=== PATIENT | female | born 1970 | race Caucasian/White ===

== ENCOUNTER → 2018-10-08 | Outpatient (CLI) | payer MEDICARE, OTHER ==
[~2018-10-08] MED LIST: ACET325T53 PO; ALBU2.5V11 NEB; AMIN30LI PO; ARIP5TAB10 PO; ASCO500C16 PO; BENZ1LOZ2 PO; DEXT1DRO6 OP; DOCU-270 PO; HYDR2TAB4 PO; LANS15TA6 PO; LORA-258 PO; MORP60TA34 PO; MULT1TAB11 PO; ONDA4SOL2 PO; OXYC30TA2 PO; POLY119P PO; SENN1TAB6 PO; TEMA15CA5 PO; ZINC220C6 PO
== END ==
LOC: MSC 16:30
PROVIDERS: ATTEND Anesthesiology
DX: M46.96 Unspecified inflammatory spondylopathy, lumbar region (principal); M96.1 Postlaminectomy syndrome, not elsewhere classified; M54.16 Radiculopathy, lumbar region; M50.10 Cervical disc disorder with radiculopathy, unspecified cervical region; M62.830 Muscle spasm of back; M25.9 Joint disorder, unspecified; G89.4 Chronic pain syndrome; Z79.899 Other long term (current) drug therapy

== ENCOUNTER 2018-11-12 10:49 | Outpatient (CLI) | payer MEDICARE, OTHER | END 2018-11-12 23:59 | disposition home or self-care (01) | LOC: MSC 10:49 | PROVIDERS: ATTEND Anesthesiology | DX: M46.96 Unspecified inflammatory spondylopathy, lumbar region (principal); M96.1 Postlaminectomy syndrome, not elsewhere classified; M62.830 Muscle spasm of back; M50.10 Cervical disc disorder with radiculopathy, unspecified cervical region; G89.4 Chronic pain syndrome; M79.2 Neuralgia and neuritis, unspecified; M25.9 Joint disorder, unspecified; Z79.899 Other long term (current) drug therapy ==

== ENCOUNTER 2018-12-19 12:18 | Emergency (ER) | payer MEDICARE, OTHER ==
[~2018-12-19] VITALS: Ht 175.3 cm; Wt 98.9 kg
--- NOTE | 2018-12-19 12:29 | NUR ---
Surekha burnett in EDM - 12/19/18 at 1415 by SONU FROM URGENT CARE; INCREASED SWELLING AND PAIN IN VAGINAL AREA, PT STARTED ATB YESTERDAY. TO ER BED 16, HOOKED TO MONITOR, CHANGED TO [facility], AWAITING MD TEMPLETON.
--- NOTE | 2018-12-19 12:56 | NUR ---
DR HOYT AT BEDSIDE FOR EVAL.
[2018-12-19 13:22] LABS: BASOPHILS % (AUTO) 0.4 % (0.0-2.0); EOSINOPHILS % (AUTO) 1.2 % (0.0-6.0); HEMATOCRIT 44 % (33-45); HEMOGLOBIN 14.3 g/dL (11.5-14.8); LYMPHOCYTES # (AUTO) 1.3 /CMM (0.8-4.8); LYMPHOCYTES % (AUTO) 23.8 % (20.0-44.0); MEAN CORPUSCULAR HGB CONC 33 g/dl (31.0-36.0); MEAN CORPUSCULAR VOLUME 78 fL (82-100); MONOCYTES # (AUTO) 0.4 /CMM (0.1-1.30); MONOCYTES % (AUTO) 7.7 % (2.0-12.0); NEUTROPHILS # (AUTO) 3.7 /CMM (1.8-8.9); NEUTROPHILS % (AUTO) 66.9 % (43.0-81.0); PLATELET COUNT (AUTO) 188 /CMM (150-450); RED BLOOD CELL COUNT(AUTO) 5.62 MIL/uL (4.0-5.2); WHITE BLOOD COUNT (AUTO) 5.5 K/uL (4.3-11.0)
[2018-12-19 13:35] LABS: ALANINE AMINOTRANSFERASE 19 U/L (12-78); ALBUMIN 3.4 g/dL (3.4-5.0); ALCOHOL, BLOOD < 3 mg/dL (0-0); ALKALINE PHOSPHATASE 87 U/L (46-116); ASPARTATE AMINOTRANSFERASE 17 U/L (15-37); BILIRUBIN,DIRECT 0.1 mg/dL (0.0-0.2); BILIRUBIN,TOTAL 0.2 mg/dL (0.2-1.0); CALCIUM, SERUM 9.3 mg/dL (8.5-10.1); CARBON DIOXIDE 30 mmol/L (21-32); CHLORIDE 102 mmol/L (98-107); CREATININE 0.8 mg/dL (0.6-1.3); GLUCOSE 117 mg/dL (74-106); POTASSIUM 4.1 mmol/L (3.5-5.1); SALICYLATE 3.9 mg/dL (2.8-20.0); SODIUM SERUM 136 mmol/L (136-145); TOTAL PROTEIN, SERUM 7.5 g/dL (6.4-8.2); UREA NITROGEN, BLOOD 14 mg/dL (7-18)
[2018-12-19 13:45] LABS: ACETAMINOPHEN 0 ug/ml (10-30)
[2018-12-19 13:56] LABS: APPEARANCE,URINE Clear (CLEAR); BILIRUBIN,URINE Negative (NEGATIVE); BLOOD, URINE Negative Ery/uL (NEGATIVE); COLOR,URINE Yellow (YELLOW); KETONES,URINE Negative (NEGATIVE); LEUKOCYTE ESTERASE ,URINE Negative (NEGATIVE); NITRITE, URINE Negative (NEGATIVE); PH,URINE 5.5 (5.0-8.0); PROTEIN,URINE Negative (NEGATIVE); UGLUCOSE Negative (NEGATIVE); UROBILINOGEN,URINE 0.2 EU/dL (0.2)
--- NOTE | 2018-12-19 14:27 | NUR ---
Social service consult requested by Dr. Koenig due to pt. using drugs at her SNF. Pt. is a 48 year old female who was sent to [facility] from her SNF [facility] to be medically cleared due to pt. has used drugs 3 days ago. HARSHA met with the pt. Pt. is alert and oriented x 4. Pt. is well-groomed. Pt is hyperverbal. 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 Pt. states she was sober for 12 months prior to this incident and regrets using drugs. Pt. denies alcohol use. Pt. smoke cigarettes and marijuana daily. HARSHA spoke with Dr. Koenig prior to seeing the pt. and stated pt. is medically cleared and does not need hospitalization. Pt has as psychiatric diagnosis of Bipolar with Hypomania. Pt. is taking psychotropic medications. Pt. denies any suicidal and homicidal ideations and visual/auditory hallucinations at this time. Pt. is wanting to go back to her [facility]. HARSHA updated FIDELIA Hui with aforementioned information and requested him to call [facility] to inquire if they are accepting the pt. back. No other social service needs are requested at this time.
--- NOTE | 2018-12-19 14:49 | NUR ---
CALLED TRANSPORT ETA IS 1630 TRIP # [id number] PER CRYSTAL
--- NOTE | 2018-12-19 18:20 | NUR ---
CALLED TRANSPORT ABOUT PICKUP "THEY WILL BE HERE IN 10 MINS."
--- NOTE | 2018-12-19 18:52 | NUR ---
TRANSFERED BACK TO [place] IN STABLE CONDITION.
[2018-12-19 18:54] VITALS: BP 121/74
== END 2018-12-19 18:54 | disposition home or self-care (01) ==
LOC: ER 12:20
DX: F19.10 Other psychoactive substance abuse, uncomplicated (principal); F12.10 Cannabis abuse, uncomplicated; K21.9 Gastro-esophageal reflux disease without esophagitis; G89.29 Other chronic pain; F29 Unspecified psychosis not due to a substance or known physiological condition; F17.200 Nicotine dependence, unspecified, uncomplicated; Z98.890 Other specified postprocedural states; Z88.1 Allergy status to other antibiotic agents; Z88.0 Allergy status to penicillin; Z79.899 Other long term (current) drug therapy
CPT/HCPCS: 36415; 80048; 80076; 80307; 80329; 81001; 85025; 99283; G0480; 81000-TC

== ENCOUNTER → 2018-12-24 | Outpatient (CLI) | payer MEDICARE, OTHER | END | disposition other institution (70) | LOC: MSC 09:35 | PROVIDERS: ATTEND Anesthesiology | DX: M46.96 Unspecified inflammatory spondylopathy, lumbar region (principal); M54.16 Radiculopathy, lumbar region; M96.1 Postlaminectomy syndrome, not elsewhere classified; M62.830 Muscle spasm of back; M50.10 Cervical disc disorder with radiculopathy, unspecified cervical region; G89.4 Chronic pain syndrome; M25.9 Joint disorder, unspecified; F11.20 Opioid dependence, uncomplicated ==

== ENCOUNTER 2019-01-16 19:36 | Emergency (ER) | payer MEDICARE, OTHER ==
[~2019-01-16] VITALS: Ht 175.3 cm; Wt 96.2 kg
--- NOTE | 2019-01-16 19:38 | NUR ---
PT BIB PRIVATE AMBULANCE FROM [facility] C/O L HAND PAIN, SWELLING & REDNESS X2 WEEKS. PT DENIES TRAUMA. BACTRIM 1 UD GIVEN BY [facility] STAFF [employer] VICE PRESIDENT. PT ADMITS "I INJECTED METH FOR THE FIRST TIME ON MY HAND". PT ENDORSES 11/21 PS. PT AAOX4, VSS, BREATHING EVEN AND UNLABORED ON ROOM AIR W/ NAD. PT CONNECTED TO THE MONITOR AND POX
--- NOTE | 2019-01-16 20:23 | NUR ---
AWAITING FOR MD TEMPLETON
[2019-01-16] MEDS ORDERED: CLINDAMYCIN 900 MG/6 ML VIAL ONE (20:42)
--- NOTE | 2019-01-16 20:53 | NUR ---
ARRANGED BLS TRANSPORT WITH [facility] ETA [id number]
[2019-01-16] MEDS ORDERED: CLINDAMYCIN 600 MG in IV D5W 100 ML IM ONE (21:00)
[2019-01-16 21:32] VITALS: BP 118/71
--- NOTE | 2019-01-16 21:32 | NUR ---
REPORT GIVEN TO EMS, PT TRANSFERRED IN STABLE CONDITION
--- NOTE | 2019-01-16 21:33 | NUR ---
Patient discharged to FACILITY In stable condition. Written and verbal after care instructions given. Patient verbalizes understanding of instruction.
== END 2019-01-16 21:34 ==
LOC: ER 19:39
DX: L03.114 Cellulitis of left upper limb (principal); F15.10 Other stimulant abuse, uncomplicated; F17.200 Nicotine dependence, unspecified, uncomplicated; K21.9 Gastro-esophageal reflux disease without esophagitis; G89.29 Other chronic pain; Z98.890 Other specified postprocedural states; Z88.1 Allergy status to other antibiotic agents; Z88.0 Allergy status to penicillin; Z79.899 Other long term (current) drug therapy
CPT/HCPCS: 96372; 99283; 99406; J3490; J7060

== ENCOUNTER → 2019-03-18 | Outpatient (CLI) | payer MEDICARE, OTHER | LOC: MSC 12:50 | PROVIDERS: ATTEND Anesthesiology | DX: M46.96 Unspecified inflammatory spondylopathy, lumbar region (principal); M54.16 Radiculopathy, lumbar region; M96.1 Postlaminectomy syndrome, not elsewhere classified; M62.830 Muscle spasm of back; M50.10 Cervical disc disorder with radiculopathy, unspecified cervical region; M25.9 Joint disorder, unspecified; G89.4 Chronic pain syndrome; F11.20 Opioid dependence, uncomplicated; Z79.899 Other long term (current) drug therapy ==